=== PATIENT | female | born 1970 | race Caucasian/White ===

== ENCOUNTER 2017-08-21 09:10 | Emergency (ER) | payer OTHER ==
[~2017-08-21] VITALS: Ht 162.6 cm; Wt 78.2 kg
[2017-08-21 10:20] LABS: BASOPHIL % 0.1 % (0-2); PLATELET COUNT 253 x10^3mcL (130-400); RED CELL DISTRIBUTION WIDTH 13.1 % (11.5-14.5)
[2017-08-21 10:25] LABS: ALKALINE PHOSPHATASE 117 U/L (46-116); ALT/SGPT 62 U/L (14-59); AST/SGOT 24 U/L (15-37); BILIRUBIN TOTAL 0.1 mg/dL (0.20-1.00); CHLORIDE SERUM 105 mmol/L (98-107); CREATININE SERUM 0.7 mg/dL (0.6-1.0); GFR1 > 60 mL/min; GLUCOSE SERUM 150 mg/dL (74-106); LIPASE 71 IU/L (73-393); SODIUM SERUM 138 mmol/L (136-145); TOTAL PROTEIN, SERUM 6.6 g/dL (6.4-8.2)
[2017-08-21 10:26] LABS: ALBUMIN 3.3 g/dL (3.4-5.0)
[2017-08-21 11:47] VITALS: BP 108/71
== END 2017-08-21 11:49 | disposition home or self-care (01) ==
LOC: ED 09:10
PROVIDERS: Emergency Medicine
DX: J11.1 Influenza due to unidentified influenza virus with other respiratory manifestations (principal); J45.909 Unspecified asthma, uncomplicated
CPT/HCPCS: 87804; J1885; J2405; J7030; Q0092

== ENCOUNTER 2020-07-11 10:44 | Emergency (ER) | payer OTHER ==
[~2020-07-11] VITALS: Ht 162.6 cm; Wt 88.5 kg
[2020-07-11 10:54] VITALS: Ht 162.6 cm; Wt 88.5 kg
[2020-07-11 13:42] VITALS: BP 115/78
== END 2020-07-11 12:45 | disposition home or self-care (01) ==
LOC: ED 10:44
DX: K04.7 Periapical abscess without sinus (principal); J45.909 Unspecified asthma, uncomplicated
CPT/HCPCS: J1100

== ENCOUNTER 2020-07-16 12:19 | Emergency (ER) | payer OTHER ==
[~2020-07-16] VITALS: Ht 162.6 cm; Wt 85.7 kg
[2020-07-16 12:38] VITALS: Ht 162.6 cm; Wt 85.7 kg
[2020-07-16 13:15] LABS: BASOPHIL % 0.5 % (0.2-1.3); PLATELET COUNT 340 x10^3mcL (179-408); RED CELL DISTRIBUTION WIDTH 13.4 % (12.3-17.7)
[2020-07-16 13:23] LABS: CALCIUM 9.2 mg/dL (8.5-10.1); CARBON DIOXIDE 28.4 mmol/L (21-32); CHLORIDE SERUM 104 mmol/L (98-107); CREATININE SERUM 0.7 mg/dL (0.6-1.0); GFR1 > 60 mL/min; GLUCOSE SERUM 94 mg/dL (74-106); POTASSIUM SERUM 4.4 mmol/L (3.5-5.1); SODIUM SERUM 141 mmol/L (136-145)
[2020-07-16 13:28] LABS: ALBUMIN 3.4 g/dL (3.4-5.0); ALKALINE PHOSPHATASE 124 U/L (46-116); ALT/SGPT 21 U/L (14-59); AST/SGOT 10 U/L (15-37); BILIRUBIN TOTAL 0.3 mg/dL (0.20-1.00); TOTAL PROTEIN, SERUM 7.3 g/dL (6.4-8.2)
[2020-07-16 15:15] VITALS: BP 105/55
== END 2020-07-16 15:15 | disposition home or self-care (01) ==
LOC: ED 12:19
PROVIDERS: Emergency Medicine
DX: K04.7 Periapical abscess without sinus (principal); J45.909 Unspecified asthma, uncomplicated
CPT/HCPCS: J1885; J2543; J7030